=== PATIENT | female | born 1960 | race Caucasian/White ===

== ENCOUNTER → 2021-08-21 08:22 | Outpatient (CLI) | payer OTHER, SELFPAY ==
[2021-08-21 19:12] LABS: Add Manual Diff / Slide Review NO; Basophils Absolute Auto 0 /uL (0-100); Basophils Percent Auto 0.6 % (0-2); Eosinophils Absolute Auto 200 /uL (0-450); Eosinophils Percent Auto 2.7 % (2-4); Hematocrit 38.6 % (36-46); Hemoglobin 12.4 g/dL (12.0-16.0); Lymphocytes Absolute Auto 1900 /uL (1100-4500); Lymphocytes Percent Auto 27.7 % (25-40); Mean Corpuscular HGB Conc 32.1 % (30-36); Mean Corpuscular Hemoglobin 26.5 PG (26-34); Mean Corpuscular Volume 82.3 fL (80-100); Monocytes Absolute Auto 400 /uL (0-900); Monocytes Percent Auto 5.6 % (3-14); Neutrophils Absolute Auto 4200 /uL (1500-7000); Neutrophils Percent Auto 63.4 % (50-75); Platelet Count 227 X10^3/uL (150-400); Red Blood Cell Count 4.69 X10^6/uL (4.0-5.2); Red Cell Distribution Width 14.7 % (11.6-14.8); White Blood Cell Count 6.7 X10^3/uL (4.5-11.0)
[2021-08-21 19:20] LABS: Alanine Aminotransferase 23 IU/L (<35); Albumin 4.3 g/dL (3.5-5.0); Albumin Globulin Ratio 1.4 (1.0-2.8); Alkaline Phosphatase 76 U/L (38-126); Aspartate Aminotransferase 22 IU/L (14-36); BUN Creatinine Ratio 25.5 (6-22); Bilirubin Total 0.4 mg/dL (0.2-1.3); Blood Urea Nitrogen 13 mg/dL (7-17); Calcium 9.3 mg/dL (8.4-10.2); Carbon Dioxide 31 mmol/L (22-32); Chloride 104 mmol/L (98-107); Cholesterol 223 mg/dL (140-199); Estimated Glomerular Filt Rate > 60.0 mL/min (>60); Globulin 3.1 g/dL (1.7-4.1); Glucose 119 mg/dL (80-110); HDL Cholesterol 50 mg/dL (40-60); HEMOLYSIS < 15 (0-50); LDL Cholesterol Calculated 144 mg/dL (<100); Potassium 4.1 mmol/L (3.4-5.1); Sodium 143 mmol/L (137-145); Total Protein 7.4 g/dL (6.3-8.2); Triglycerides 145 mg/dL (35-150)
[2021-08-21 19:25] LABS: Hemoglobin A1C% w Est Avg Glu 6.5 % (4.0-6.0)
[2021-08-21 19:37] LABS: Creatinine Urine Random 143.4 mg/dL
[2021-08-21 19:41] LABS: Microalbumi Creatinin Ratio Ur 61.3 ug/mg CR (<30); Microalbumin Urine Random 8.8 mg/dL (0-1.6)
[2021-08-21 19:50] LABS: TSH w/ Reflex to FT4 3.18 uIU/mL (0.47-4.68)
[2021-08-23 14:57] LABS: Fecal Immunochemical Test Negative (Negative)
== END ==
PROVIDERS: Physician Assistant; Family Provider Family Medicine; PCP Physician Assistant Medical; Referring Provider Physician Assistant Medical; Visit Provider Physician Assistant Medical
DX: K29.70 Gastritis, unspecified, without bleeding (principal); E11.9 Type 2 diabetes mellitus without complications; M79.10 Myalgia, unspecified site; M13.862 Other specified arthritis, left knee; M54.9 Dorsalgia, unspecified; E66.9 Obesity, unspecified; N12 Tubulo-interstitial nephritis, not specified as acute or chronic; K46.9 Unspecified abdominal hernia without obstruction or gangrene
CPT/HCPCS: 80053; 80061; 82043; 82274; 82570; 83036; 84443; 85025

== ENCOUNTER → 2021-12-16 13:28 | Outpatient (CLI) | payer OTHER, SELFPAY ==
[2021-12-16 19:13] LABS: Add Manual Diff / Slide Review NO; Basophils Absolute Auto 0 /uL (0-100); Basophils Percent Auto 0.5 % (0-2); Eosinophils Absolute Auto 100 /uL (0-450); Eosinophils Percent Auto 1.7 % (2-4); Hematocrit 37.1 % (36-46); Hemoglobin 12.2 g/dL (12.0-16.0); Lymphocytes Absolute Auto 1800 /uL (1100-4500); Lymphocytes Percent Auto 24.8 % (25-40); Mean Corpuscular HGB Conc 32.9 % (30-36); Mean Corpuscular Hemoglobin 26.5 PG (26-34); Mean Corpuscular Volume 80.4 fL (80-100); Monocytes Absolute Auto 400 /uL (0-900); Neutrophils Absolute Auto 4900 /uL (1500-7000); Platelet Count 225 X10^3/uL (150-400); Red Blood Cell Count 4.62 X10^6/uL (4.0-5.2); Red Cell Distribution Width 14.7 % (11.6-14.8); White Blood Cell Count 7.2 X10^3/uL (4.5-11.0)
[2021-12-16 19:36] LABS: Hemoglobin A1C% w Est Avg Glu 6.9 % (4.0-6.0)
[2021-12-16 19:43] LABS: Alanine Aminotransferase 21 IU/L (<35); Albumin 4.4 g/dL (3.5-5.0); Albumin Globulin Ratio 1.4 (1.0-2.8); Alkaline Phosphatase 76 U/L (38-126); Aspartate Aminotransferase 23 IU/L (14-36); BUN Creatinine Ratio 22.6 (6-22); Bilirubin Total 0.4 mg/dL (0.2-1.3); Blood Urea Nitrogen 14 mg/dL (7-17); Carbon Dioxide 32 mmol/L (22-32); Chloride 104 mmol/L (98-107); Cholesterol 143 mg/dL (140-199); Estimated Glomerular Filt Rate > 60.0 mL/min (>60); Globulin 3.1 g/dL (1.7-4.1); Glucose 98 mg/dL (80-110); HDL Cholesterol 48 mg/dL (40-60); HEMOLYSIS < 15 (0-50); LDL Cholesterol Calculated 75 mg/dL (<100); Potassium 3.8 mmol/L (3.4-5.1); Sodium 140 mmol/L (137-145); Total Protein 7.5 g/dL (6.3-8.2); Triglycerides 100 mg/dL (35-150)
[2021-12-16 20:30] LABS: TSH w/ Reflex to FT4 3.68 uIU/mL (0.47-4.68)
== END ==
PROVIDERS: Family Provider Family Medicine; PCP Physician Assistant; Visit Provider Physician Assistant
DX: E11.9 Type 2 diabetes mellitus without complications (principal); G89.29 Other chronic pain; M54.6 Pain in thoracic spine; R79.89 Other specified abnormal findings of blood chemistry; Z68.42 Body mass index [BMI] 45.0-49.9, adult
CPT/HCPCS: 80053; 80061; 83036; 84443; 85025

== ENCOUNTER → 2022-04-11 10:55 | Outpatient (CLI) | payer OTHER, SELFPAY ==
[2022-04-11 20:10] LABS: Hemoglobin A1C% w Est Avg Glu 7.2 % (4.0-6.0)
== END ==
PROVIDERS: Family Provider Family Medicine; PCP Physician Assistant; Visit Provider Physician Assistant
DX: E11.9 Type 2 diabetes mellitus without complications (principal)
CPT/HCPCS: 83036

== ENCOUNTER → 2022-09-19 08:17 | Outpatient (CLI) | payer OTHER, SELFPAY ==
[2022-09-19 20:04] LABS: Hemoglobin A1C% w Est Avg Glu 6.6 % (4.0-6.0)
[2022-09-19 20:07] LABS: Alanine Aminotransferase 25 IU/L (<35); Albumin 4.3 g/dL (3.5-5.0); Albumin Globulin Ratio 1.3 (1.0-2.8); Alkaline Phosphatase 86 U/L (38-126); Aspartate Aminotransferase 21 IU/L (14-36); BUN Creatinine Ratio 22.8 (6-22); Bilirubin Total 0.5 mg/dL (0.2-1.3); Blood Urea Nitrogen 13 mg/dL (7-17); Calcium 9.3 mg/dL (8.4-10.2); Carbon Dioxide 31 mmol/L (22-32); Chloride 101 mmol/L (98-107); Estimated Glomerular Filt Rate > 60 mL/min (>60); Globulin 3.2 g/dL (1.7-4.1); Glucose 105 mg/dL (80-110); HEMOLYSIS < 15 (0-50); Sodium 140 mmol/L (137-145); Total Protein 7.5 g/dL (6.3-8.2)
[2022-09-19 20:17] LABS: Creatinine Urine Random 176.2 mg/dL
[2022-09-19 20:22] LABS: Microalbumi Creatinin Ratio Ur 43.1 ug/mg CR (<30); Microalbumin Urine Random 7.6 mg/dL (0-1.6)
== END ==
PROVIDERS: Family Provider Family Medicine; PCP Physician Assistant; Visit Provider Family Medicine
DX: E11.9 Type 2 diabetes mellitus without complications (principal); N28.9 Disorder of kidney and ureter, unspecified
CPT/HCPCS: 80053; 82043; 82570; 83036

== ENCOUNTER → 2023-06-04 12:49 | Outpatient (CLI) | payer OTHER, SELFPAY ==
[2023-06-04 19:48] LABS: Uric Acid 5.9 mg/dL (2.5-6.2)
[2023-06-04 19:59] LABS: Add Manual Diff / Slide Review NO; Basophils Absolute Auto 0 /uL (0-100); Basophils Percent Auto 0.3 % (0-2); Eosinophils Absolute Auto 200 /uL (0-450); Eosinophils Percent Auto 2.7 % (2-4); Hematocrit 37.7 % (36-46); Hemoglobin 12.5 g/dL (12.0-16.0); Lymphocytes Absolute Auto 1800 /uL (1100-4500); Lymphocytes Percent Auto 24.8 % (25-40); Mean Corpuscular Hemoglobin 26.7 PG (26-34); Mean Corpuscular Volume 80.8 fL (80-100); Monocytes Absolute Auto 500 /uL (0-900); Monocytes Percent Auto 6.4 % (3-14); Neutrophils Absolute Auto 4700 /uL (1500-7000); Neutrophils Percent Auto 65.8 % (50-75); Platelet Count 221 X10^3/uL (150-400); Red Blood Cell Count 4.66 X10^6/uL (4.0-5.2); Red Cell Distribution Width 14.7 % (11.6-14.8); White Blood Cell Count 7.2 X10^3/uL (4.5-11.0)
[2023-06-04 20:06] LABS: Erythrocyte Sedimentation Rate 22 MM/HR (0-20)
[2023-06-04 20:21] LABS: Creatinine Urine Random 301.4 mg/dL
[2023-06-04 20:27] LABS: Microalbumi Creatinin Ratio Ur 39.8 ug/mg CR (<30)
== END ==
PROVIDERS: Family Provider Family Medicine; PCP Physician Assistant; Visit Provider Physician Assistant
DX: L03.90 Cellulitis, unspecified (principal); E11.9 Type 2 diabetes mellitus without complications
CPT/HCPCS: 82043; 82570; 84550; 85025; 85651

== ENCOUNTER → 2023-09-01 08:26 | Outpatient (CLI) | payer MEDICARE, SELFPAY ==
[2023-09-01 19:18] LABS: Alanine Aminotransferase 25 IU/L (<35); Albumin 3.9 g/dL (3.5-5.0); Albumin Globulin Ratio 1.3 (1.0-2.8); Alkaline Phosphatase 87 U/L (38-126); Aspartate Aminotransferase 22 IU/L (14-36); BUN Creatinine Ratio 28.8 (6-22); Bilirubin Total 0.5 mg/dL (0.2-1.3); Blood Urea Nitrogen 15 mg/dL (7-17); Calcium 9.3 mg/dL (8.4-10.2); Carbon Dioxide 30 mmol/L (22-32); Chloride 104 mmol/L (98-107); Estimated Glomerular Filt Rate > 60 mL/min (>60); Glucose 119 mg/dL (80-110); HEMOLYSIS < 15 (0-50); Potassium 3.9 mmol/L (3.4-5.1); Sodium 141 mmol/L (137-145); Total Protein 6.9 g/dL (6.3-8.2)
[2023-09-01 19:34] LABS: Add Manual Diff / Slide Review NO; Basophils Absolute Auto 100 /uL (0-100); Eosinophils Absolute Auto 300 /uL (0-450); Eosinophils Percent Auto 3.8 % (2-4); Hematocrit 37.3 % (36-46); Hemoglobin 12.3 g/dL (12.0-16.0); Lymphocytes Absolute Auto 1700 /uL (1100-4500); Lymphocytes Percent Auto 24.8 % (25-40); Mean Corpuscular Hemoglobin 26.8 PG (26-34); Mean Corpuscular Volume 81.2 fL (80-100); Monocytes Absolute Auto 500 /uL (0-900); Monocytes Percent Auto 7.2 % (3-14); Neutrophils Absolute Auto 4300 /uL (1500-7000); Neutrophils Percent Auto 63.2 % (50-75); Platelet Count 220 X10^3/uL (150-400); Red Blood Cell Count 4.59 X10^6/uL (4.0-5.2); White Blood Cell Count 6.9 X10^3/uL (4.5-11.0)
[2023-09-01 19:49] LABS: C-Reactive Protein Quant 1.3 mg/dL (<1.0)
[2023-09-01 19:52] LABS: TSH w/ Reflex to FT4 3.39 uIU/mL (0.47-4.68)
[2023-09-01 20:33] LABS: Erythrocyte Sedimentation Rate 21 MM/HR (0-20)
== END ==
PROVIDERS: Family Provider Family Medicine; PCP Physician Assistant Medical; Visit Provider Physician Assistant Medical
DX: L29.9 Pruritus, unspecified (principal)
CPT/HCPCS: 80053; 84443; 85025; 85651; 86140

== ENCOUNTER → 2023-09-16 09:32 | Outpatient (CLI) | payer MEDICARE, SELFPAY ==
[2023-09-16 20:27] LABS: C-Reactive Protein Quant 1.5 mg/dL (<1.0); Cholesterol 195 mg/dL (140-199); HDL Cholesterol 43 mg/dL (40-60); LDL Cholesterol Calculated 129 mg/dL (<100); Triglycerides 117 mg/dL (35-150)
[2023-09-16 20:29] LABS: Hemoglobin A1C% w Est Avg Glu 7.2 % (4.0-6.0)
== END ==
PROVIDERS: Family Provider Family Medicine; PCP Physician Assistant Medical; Visit Provider Physician Assistant Medical
DX: E11.9 Type 2 diabetes mellitus without complications (principal); E78.00 Pure hypercholesterolemia, unspecified; M79.671 Pain in right foot; M79.672 Pain in left foot; L29.9 Pruritus, unspecified
CPT/HCPCS: 80061; 83036; 86140

== ENCOUNTER 2023-10-18 10:24 | Emergency (ER) | payer MEDICARE, MEDICAID, SELFPAY ==
[2023-10-18 10:30] VITALS: PULSE 87; O2SAT 98
[2023-10-18 10:33] VITALS: BP 162/74; PULSE 81; RESP 19; O2SAT 99
--- NOTE | 2023-10-18 10:33 | DI.RAD.S_ITS ---
PROCEDURE: XR CHEST 2V INDICATIONS: cough and SOB TECHNIQUE: 2 views of the chest were acquired. COMPARISON: [facility], , CHEST 2 VIEW, 04/28/2011, 23:29. FINDINGS: Surgical changes and devices: None. Lungs and pleura: Lungs are clear. No pleural effusions or pneumothorax. Mediastinum: Mediastinal contours are normal. Heart size is normal. Bones and chest wall: No suspicious bony abnormalities. Soft tissues appear unremarkable. IMPRESSION: No acute cardiopulmonary abnormality is seen. Dictated by: Wai Schafer M.D. on 10/18/2023 at 9:54 Approved by: Wai Schafer M.D. on 10/18/2023 at 9:56
[2023-10-18 10:34] VITALS: BP 162/74; PULSE 82; RESP 16; TEMP 36.8; O2SAT 97
--- NOTE | 2023-10-18 10:34 | ED.GENADULT ---
HPI - General Adult General Chief complaint: Urogenital-Female Stated complaint: fever, lower back/abd pain, pain when urinating Time Seen by Provider: 10/18/23 10:29 Source: patient Mode of arrival: Ambulatory Limitations: no limitations History of Present Illness HPI narrative: Patient is a 63-year-old female who for the past several weeks/months has had a nonproductive cough. No fevers. No chest pain. Somewhat short of breath because of the cough. Over the past couple days has developed dysuria with urinary frequency and urgency. Also is having lower back discomfort and fevers. Has had her gallbladder removed. Has had her appendix removed. No diarrhea. Related Data Previous Rx's Medication Instructions Recorded cyclobenzaprine 5 mg tablet 5 - 10 mg (1 - 2 x 5 mg) PO TID 12/05/21 PRN muscle spasm #30 tabs blood sugar diagnostic (Blood #100 ea 08/25/22 Glucose Test strips) blood-glucose meter (CareTouch #1 ea 08/25/22 Glucose Monitoring System kit) liraglutide 0.6 mg/0.1 mL (18 mg/3 See Rx Instructions SUBCUT 01/02/23 mL) subcutaneous pen injector .COMPLEX #9 mL (Victoza 3-Gurmeet) meloxicam 15 mg tablet 15 mg PO DAILY #30 tabs 01/02/23 cephalexin 500 mg capsule 500 mg PO QID #20 caps 05/19/23 hydroxyzine HCl 25 mg tablet 25 mg PO QID #30 tabs 05/19/23 hydroxyzine HCl 25 mg tablet 25 mg PO BEDTIME #60 tabs 08/19/23 hydrocortisone 1 % topical gel 1 applic topical TID PRN itching 09/11/23 (Cortisone Cooling) #28 grams atorvastatin 20 mg tablet 20 mg PO QPM #30 tabs 10/02/23 atorvastatin 40 mg tablet 40 mg PO DAILY #90 tabs 10/02/23 lisinopril 10 mg tablet 10 mg PO DAILY #90 tabs 10/02/23 metformin 1,000 mg tablet 1,000 mg PO DAILY #270 tabs 10/02/23 cephalexin 500 mg capsule 500 mg PO BID 7 days #14 caps 10/18/23 Allergies Allergy/AdvReac Type Severity Reaction Status Date / Time No Known Drug Allergies Allergy Verified 10/02/23 10:06 Review of Systems Cardiovascular Cardiovascular: Reports system reviewed and no additional complaints, except as documented Respiratory Respiratory: Reports system reviewed and no additional complaints, except as documented Gastrointestinal Gastrointestinal: Reports system reviewed and no additional complaints, except as documented Genitourinary Genitourinary: Reports system reviewed and no additional complaints, except as documented Integumentary/Breasts Skin/Breast: Reports system reviewed and no additional complaints, except as documented Patient History Medical History Pain in thoracic spine Surgical History (Updated 01/05/23 @ 15:17 by Lady Dominique Lei) Anesthesia History of hysterectomy (~2015) History of cholecystectomy (~2015) History of appendectomy (~2016) Family History (System 01/05/23 @ 15:17 by Lady Dominique Lei) Mother Kidney disease Grandmother History of head or neck cancer Social History Smoking Status: Never smoker Smoking Status: Never smoker Exam Initial Vital Signs Initial Vital Signs: Vital Signs Pulse Rate 87 10/18/23 10:30 Pulse Oximetry 98 10/18/23 10:30 HENMT Head: normal to inspection and normocephalic Resp Effort & Inspection: normal respiratory effort Auscultation: clear to auscultation bilaterally Cardio Rate: regular rate Rhythm: regular rhythm GI Inspection: non-distended Palpation: soft and No tender Skin General: no rashes or lesions noted Neuro General: patient alert, patient awake, patient oriented x3 and moves all extremities Extrem General: No edema Course Orders Ordered: ED Orders 10/18/23 10:33 XR chest 2V Stat 10/18/23 10:37 Complete Blood Count AUTO DIFF Stat Comprehensive Metabolic Panel Stat Lipase Stat Urine Culture Stat Urine Microscopic Stat Vital Signs Vital signs: Vital Signs - 8 hr 10/18/23 10:30 10/18/23 10:33 10/18/23 10:33 Temperature Pulse Rate 87 81 Respiratory Rate 19 Blood Pressure 162/74 H Pulse Oximetry 98 99 Oxygen Delivery Method Room Air 10/18/23 10:34 10/18/23 11:00 10/18/23 11:01 Temperature 98.3 F Pulse Rate 82 81 Respiratory Rate 16 Blood Pressure 162/74 H 142/63 H Pulse Oximetry 97 98 Oxygen Delivery Method Room Air 10/18/23 11:01 Temperature Pulse Rate 82 Respiratory Rate Blood Pressure Pulse Oximetry 98 Oxygen Delivery Method Room Air Medical Decision Making Lab Data 10/18/23 10:37 10/18/23 10:37 Labs: Lab Results 10/18/23 Range/Units 10:37 WBC 5.7 (4.5-11.0) X10^3/uL RBC 5.02 (4.0-5.2) X10^6/uL Hgb 13.3 (12.0-16.0) g/dL Hct 41.0 (36-46) % MCV 81.6 (80-100) fL MCH 26.6 (26-34) PG MCHC 32.5 (30-36) % RDW 14.8 (11.6-14.8) % Plt Count 287 (150-400) X10^3/uL Neut % (Auto) 55.1 (50-75) % Lymph % (Auto) 30.2 (25-40) % [place] % (Auto) 11.0 (3-14) % Eos % (Auto) 3.2 (2-4) % Baso % (Auto) 0.5 (0-2) % Neut # (Auto) 3200 (9974-3861) /uL Lymph # (Auto) 1700 (6168-7400) /uL [place] # (Auto) 600 (0-900) /uL Eos # (Auto) 200 (0-450) /uL Baso # (Auto) 0 (0-100) /uL Sodium 141 (137-145) mmol/L Potassium 3.4 (3.4-5.1) mmol/L Chloride 104 (98-107) mmol/L Carbon Dioxide 29 (22-32) mmol/L BUN 14 (7-17) mg/dL Creatinine 0.57 (0.52-1.04) mg/dL Estimated GFR > 60 (>60) mL/min BUN/Creatinine Ratio 24.6 H (6-22) Glucose 136 H (80-110) mg/dL Calcium 9.4 (8.4-10.2) mg/dL Total Bilirubin 0.5 (0.2-1.3) mg/dL AST 28 (14-36) IU/L ALT 28 (<35) IU/L Alkaline Phosphatase 70 (38-126) U/L Total Protein 8.0 (6.3-8.2) g/dL Albumin 4.3 (3.5-5.0) g/dL Globulin 3.7 (1.7-4.1) g/dL Albumin/Globulin Ratio 1.2 (1.0-2.8) Lipase 85 (23-300) U/L Urine RBC 1-5/hpf (0-5/HPF) Urine WBC 30-100/hpf H (0-5/HPF) Ur Squamous Epith Cells 1-5 /hpf (0-5/HPF) Urine Bacteria Many (>30) H (None) Ur Culture Indicated? Specimen cultured Urine Dip Bedside Urine Glucose Negative Bedside Urine Bilirubin - Negative Bedside Urine Ketone - Negative Urine Specific [place] 1.020 Bedside Urine Occult Blood +/- Bedside Urine pH 6.0 Bedside Urine Protein +/- 15 Bedside Urine Urobilinogen - Negative Bedside Urine Nitrite - Negative Bedside Urine Leukocytes + 70 Esterase Point of care testing: Urine Dip Bedside Urine Glucose Negative Bedside Urine Bilirubin - Negative Bedside Urine Ketone - Negative Urine Specific [place] 1.020 Bedside Urine Occult Blood +/- Bedside Urine pH 6.0 Bedside Urine Protein +/- 15 Bedside Urine Urobilinogen - Negative Bedside Urine Nitrite - Negative Bedside Urine Leukocytes + 70 Esterase Imaging Data Chest x-ray: Radiologist's Impression: PROCEDURE: XR CHEST 2V INDICATIONS: cough and SOB TECHNIQUE: 2 views of the chest were acquired. COMPARISON: [facility], , CHEST 2 VIEW, 04/28/2011, 23:29. FINDINGS: Surgical changes and devices: None. Lungs and pleura: Lungs are clear. No pleural effusions or pneumothorax. Mediastinum: Mediastinal contours are normal. Heart size is normal. Bones and chest wall: No suspicious bony abnormalities. Soft tissues appear unremarkable. IMPRESSION: No acute cardiopulmonary abnormality is seen. [facility] Narrative Medical decision making narrative: Patient is nontoxic. No leukocytosis. Not hypoxic. Not tachypneic. Not hypotensive. Low suspicion for pyelo. Urinalysis does show white blood cells and bacteria. This would be consistent with the dysuria that she is having today with a diagnosis of urinary tract infection. She was tolerating oral intake. Will treat with antibiotics. No indication for admission to the hospital. She was given return precautions. She expressed understanding and agreement. Discharge Plan Departure Patient Disposition: Home Clinical Impression: Acute UTI Instructions: DI for Urinary Tract Infection (UTI) Activity Restrictions/Additional Instructions: A prescription for antibiotics was sent to [facility] here in [place]. I recommend that you pick them up and start taking them as directed. There is a urine culture pending at the time of your discharge and we will contact you if we need to change antibiotics based on this. Return to the emergency department for new symptoms Prescriptions: New cephalexin 500 mg capsule 500 mg PO BID 7 Days Qty: 14 0RF No Action (DME) blood-glucose meter [[employer] mobile [employer] Glucose Monitoring] Kit See Rx Instructions .Route Qty: 1 0RF Rx Instructions: As directed (DME) Blood Glucose Test Strip See Rx Instructions .Route Qty: 100 1RF Rx Instructions: As directed cyclobenzaprine 5 mg tablet 5 - 10 mg PO TID PRN (Reason: muscle spasm) Qty: 30 0RF cephalexin 500 mg capsule 500 mg PO QID Qty: 20 0RF hydroxyzine HCl 25 mg tablet 25 mg PO QID Qty: 30 0RF hydroxyzine HCl 25 mg tablet 25 mg PO BEDTIME Qty: 60 0RF Rx Instructions: take 1 or 2 at bedtime for itching Victoza 3-Gurmeet 0.6 mg/0.1 mL (18 mg/3 mL) pen injector See Rx Instructions SUBCUT .COMPLEX Qty: 9 1RF Rx Instructions: inject 0.6mg subcutaneously once daily x 7 days; then 1.2mg daily, not to exceed 1.8mg/day SUBCUT meloxicam 15 mg tablet 15 mg PO DAILY Qty: 30 2RF triamcinolone acetonide [Kenalog] 40 mg/mL suspension 40 mg intra-articular ONCE Qty: 1 0RF Cortisone Cooling 1 % gel 1 applic topical TID PRN (Reason: itching) Qty: 28 3RF metformin 1,000 mg tablet 1,000 mg PO DAILY Qty: 270 1RF Rx Instructions: [place] con comida dos veces al clementina lisinopril 10 mg tablet 10 mg PO DAILY Qty: 90 3RF atorvastatin 40 mg tablet 40 mg PO DAILY Qty: 90 3RF atorvastatin 20 mg tablet 20 mg PO QPM Qty: 30 5RF Referrals: Jill Zacarias PA-C [Primary Care Provider] - Stand Alone Forms: Patient Portal/API
[2023-10-18 11:00] VITALS: PULSE 81; O2SAT 98
[2023-10-18 11:01] VITALS: BP 142/63; PULSE 82; O2SAT 98
--- NOTE | 2023-10-18 11:02 | PC.NURSE ---
Pt reports having urinary pain and back pain on and off for the past 3 weeks. She was feeling better last week, but this week her symptoms returned and are worsening. She has bilateral flank pain that radiates to the front of bilateral abdomen. Family in room at bedside. Pt reports burning pain with urination and feeling like she still has to urinate after urinating.
[2023-10-18 11:05] LABS: Bacteria Urine Many (>30); RBC Urine 1-5/HPF (0-5/HPF); WBC Urine 30-100/HPF (0-5/HPF)
[2023-10-18 11:06] LABS: Culture Indicated Urine Specimen Cultured; Squamous Epithelial Cell Urine 1-5 /HPF (0-5/HPF)
[2023-10-18 11:12] LABS: Add Manual Diff / Slide Review NO; Basophils Absolute Auto 0 /uL (0-100); Basophils Percent Auto 0.5 % (0-2); Eosinophils Absolute Auto 200 /uL (0-450); Eosinophils Percent Auto 3.2 % (2-4); Hemoglobin 13.3 g/dL (12.0-16.0); Lymphocytes Absolute Auto 1700 /uL (1100-4500); Lymphocytes Percent Auto 30.2 % (25-40); Mean Corpuscular HGB Conc 32.5 % (30-36); Mean Corpuscular Hemoglobin 26.6 PG (26-34); Mean Corpuscular Volume 81.6 fL (80-100); Monocytes Absolute Auto 600 /uL (0-900); Neutrophils Absolute Auto 3200 /uL (1500-7000); Neutrophils Percent Auto 55.1 % (50-75); Platelet Count 287 X10^3/uL (150-400); Red Blood Cell Count 5.02 X10^6/uL (4.0-5.2); Red Cell Distribution Width 14.8 % (11.6-14.8); White Blood Cell Count 5.7 X10^3/uL (4.5-11.0)
[2023-10-18 11:15] LABS: Alanine Aminotransferase 28 IU/L (<35); Albumin 4.3 g/dL (3.5-5.0); Albumin Globulin Ratio 1.2 (1.0-2.8); Alkaline Phosphatase 70 U/L (38-126); Aspartate Aminotransferase 28 IU/L (14-36); BUN Creatinine Ratio 24.6 (6-22); Bilirubin Total 0.5 mg/dL (0.2-1.3); Blood Urea Nitrogen 14 mg/dL (7-17); Calcium 9.4 mg/dL (8.4-10.2); Carbon Dioxide 29 mmol/L (22-32); Chloride 104 mmol/L (98-107); Estimated Glomerular Filt Rate > 60 mL/min (>60); Globulin 3.7 g/dL (1.7-4.1); Glucose 136 mg/dL (80-110); HEMOLYSIS < 15 (0-50); Lipase 85 U/L (23-300); Potassium 3.4 mmol/L (3.4-5.1); Sodium 141 mmol/L (137-145)
[2023-10-18 11:30] VITALS: BP 141/63; PULSE 87; O2SAT 98
== END 2023-10-18 11:40 | disposition home or self-care (01) ==
PROVIDERS: Emergency Provider Emergency Medicine; Family Provider Family Medicine; PCP Physician Assistant Medical
DX: N39.0 Urinary tract infection, site not specified (principal); R06.02 Shortness of breath; Z79.899 Other long term (current) drug therapy
CPT/HCPCS: 36415; 71046; 80053; 81003; 81015; 83690; 85025; 87077; 87086; 99283

== ENCOUNTER → 2023-10-30 14:10 | Outpatient (CLI) | payer MEDICARE, MEDICAID, SELFPAY ==
--- NOTE | 2023-10-30 14:12 | DI.MRI.S_ITS ---
PROCEDURE: MR ANKLE LT WO CON INDICATIONS: POSTERIOR TIBIALIS MUSCLE DYSFUNCTION/TENDONITIS TECHNIQUE: Noncontrast sagittal T1 spin echo and T2 fast spin echo with fat saturation, axial proton density fast spin echo and T2 fast spin echo with fat saturation, coronal T1 spin echo and T2 fast spin echo with fat saturation through the ankle/hindfoot. COMPARISON: None. FINDINGS: Image quality: Excellent. Bones and joints: Diffuse soft tissue swelling around ankle joint and distal lower leg is seen extending to medial and lateral aspect of midfoot and hindfoot. There is pes planus. Moderate osteoarthritic changes are noted throughout midfoot and hindfoot joints. No fracture or dislocation. Osteochondral injuries are noted involving medial weight-bearing portion of talar dome measures up to 3 millimeter in size. Adjacent osteochondral injury involving medial aspect of distal tibial plafond is also seen. Small to moderate amount of tibiotalar and subtalar joint effusion, no gross loose bodies. Well-defined plantar calcaneal enthesophyte is seen. Medial structures: The posterior tibialis tendon is thickened with intrasubstance T2 hyperintense signal at the level of distal talus and talonavicular joint. The flexor digitorum longus, and flexor hallucis longus tendons are mildly thickened. The posterior tibial neurovascular bundle appears normal within the tarsal tunnel, without extrinsic mass effect. The deltoid ligament and spring ligament are thickened with subtle intrasubstance T2 hyperintense signal. Lateral structures: The anterior talofibular, calcaneofibular, and posterior talofibular ligaments appear thickened. More superiorly, the anterior and posterior tibiofibular ligaments also appears thickened with intrasubstance T2 hyperintense signal. The tibiofibular syndesmosis is normal in width at 2 mm or less. The peroneus longus tendon is thickened with small amount of fluid distending tendon sheath at the level of lateral malleolus tip extending to the level of distal cuboid. The peroneus brevis tendon is intact. The sinus tarsi demonstrates normal fatty signal, without edema, fibrosis, or cyst formation. Visualized sinus tarsi components (cervical ligament, interosseous talocalcaneal ligament, roots of the inferior extensor retinaculum) appear normal. Anterior structures: The tibialis anterior, extensor hallucis longus, and extensor digitorum longus tendons appear intact. The dorsal talonavicular ligament appears intact. Posterior and plantar structures: Achilles tendon is intact. Thickened medial band of plantar fascia is seen at its plantar calcaneal insertion. No abductor digiti quinti muscle atrophy to suggest Hassan neuropathy. IMPRESSION: 1. Pes planus and moderate midfoot and hindfoot joint osteoarthritis. Diffuse soft tissue swelling in distal lower leg and extending along medial and lateral aspect of midfoot and hindfoot. No fracture or dislocation. Tiny osteochondral injuries involving medial weight-bearing portion of talar dome and adjacent distal tibial plafond. Small to moderate amount of joint effusion, no gross loose bodies. 2. Moderate grade tenosynovitis involving posterior tibialis tendon at the level of distal talus and talonavicular joint. Low-grade tenosynovitis also seen involving flexor digitorum longus and flexor hallucis longus tendon at the level of distal talus and talonavicular joint. 3. Low to moderate grade tenosynovitis involving peroneus longus tendon at the level of lateral malleolus tip extending to the level of distal cuboid. 4. Low-grade sprain/intrasubstance partial-thickness tear involving medial ankle ligaments. Low-grade sprain involving lateral ankle ligaments. No full thickness ankle ligament rupture. 5. Well-defined plantar calcaneal enthesophyte with thickened plantar fascia suggestive of low to moderate grade plantar fasciitis. Dictated by: Wilfredo Reid M.D. on 10/30/2023 at 16:13 Approved by: Wilfredo Reid M.D. on 10/30/2023 at 16:26
== END ==
LOC: MRI 14:11
PROVIDERS: Family Provider Family Medicine; PCP Physician Assistant Medical; Referring Provider Orthopaedic Surgery Foot and Ankle Surgery; Visit Provider Orthopaedic Surgery Foot and Ankle Surgery
DX: M76.822 Posterior tibial tendinitis, left leg (principal); M21.42 Flat foot [pes planus] (acquired), left foot; M19.072 Primary osteoarthritis, left ankle and foot; S93.492A Sprain of other ligament of left ankle, initial encounter; M77.32 Calcaneal spur, left foot
CPT/HCPCS: 73721

== ENCOUNTER → 2023-12-31 08:46 | Outpatient (CLI) | payer MEDICARE, MEDICAID, SELFPAY ==
[2023-12-31 21:04] LABS: Erythrocyte Sedimentation Rate 28 MM/HR (0-20)
[2023-12-31 22:08] LABS: Creatinine Urine Random 113.4 mg/dL
[2023-12-31 22:11] LABS: C-Reactive Protein Quant 1.4 mg/dL (<1.0); Cholesterol 205 mg/dL (140-199); HDL Cholesterol 49 mg/dL (40-60); LDL Cholesterol Calculated 135 mg/dL (<100); Triglycerides 106 mg/dL (35-150)
[2023-12-31 22:14] LABS: Hemoglobin A1C% w Est Avg Glu 7.3 % (4.0-6.0)
[2023-12-31 22:15] LABS: Microalbumi Creatinin Ratio Ur 94.3 ug/mg CR (<30); Microalbumin Urine Random 10.7 mg/dL (0-1.6)
== END ==
PROVIDERS: Family Provider Family Medicine; PCP Physician Assistant Medical; Visit Provider Physician Assistant Medical
DX: Z12.11 Encounter for screening for malignant neoplasm of colon (principal); E11.9 Type 2 diabetes mellitus without complications; E78.2 Mixed hyperlipidemia; E11.8 Type 2 diabetes mellitus with unspecified complications; M79.671 Pain in right foot; M79.672 Pain in left foot; E78.00 Pure hypercholesterolemia, unspecified; L29.9 Pruritus, unspecified
CPT/HCPCS: 80061; 82043; 82570; 83036; 85651; 86140

== ENCOUNTER → 2024-09-08 09:07 | Outpatient (CLI) | payer MEDICARE, MEDICAID, SELFPAY ==
[2024-09-08 20:08] LABS: Hemoglobin A1C% w Est Avg Glu 9.4 % (4.0-6.0)
[2024-09-08 20:15] LABS: Blood Urea Nitrogen 13 mg/dL (7-17); Calcium 9.4 mg/dL (8.4-10.2); Carbon Dioxide 31 mmol/L (22-32); Chloride 102 mmol/L (98-107); Cholesterol 225 mg/dL (140-199); Estimated Glomerular Filt Rate > 60 mL/min (>60); Glucose 239 mg/dL (80-110); HDL Cholesterol 52 mg/dL (40-60); HEMOLYSIS 31 (0-50); LDL Cholesterol Calculated 147 mg/dL (<100); Potassium 4.2 mmol/L (3.4-5.1); Sodium 137 mmol/L (137-145); Triglycerides 130 mg/dL (35-150)
[2024-09-08 20:49] LABS: Creatinine Urine Random 285.41 mg/dL
[2024-09-08 21:19] LABS: Microalbumin Urine Random 28.8 mg/dL (0-1.6)
== END ==
PROVIDERS: Family Provider Family Medicine; PCP Physician Assistant Medical; Visit Provider Family Medicine
DX: E11.9 Type 2 diabetes mellitus without complications (principal); I10 Essential (primary) hypertension; G57.90 Unspecified mononeuropathy of unspecified lower limb; Z68.42 Body mass index [BMI] 45.0-49.9, adult; E78.2 Mixed hyperlipidemia
CPT/HCPCS: 80048; 80061; 82043; 82570; 83036

== ENCOUNTER → 2025-08-24 14:54 | Outpatient (CLI) | payer MEDICARE, MEDICAID, SELFPAY ==
[2025-08-24 19:47] LABS: Microalbumi Creatinin Ratio Ur 28.0 ug/mg CR (<30)
== END ==
PROVIDERS: Family Provider Family Medicine; PCP Physician Assistant Medical; Visit Provider Physician Assistant Medical
DX: E11.9 Type 2 diabetes mellitus without complications (principal)
CPT/HCPCS: 82043; 82570

== ENCOUNTER → 2025-08-28 08:04 | Outpatient (CLI) | payer MEDICARE, MEDICAID, SELFPAY ==
[2025-08-28 18:53] LABS: Add Manual Diff / Slide Review NO; Hematocrit 41.2 % (36-46); Hemoglobin 13.7 g/dL (12.0-16.0); Lymphocytes Absolute Auto 2200 /uL (1100-4500); Mean Corpuscular HGB Conc 33.1 % (30-36); Mean Corpuscular Hemoglobin 27.5 PG (26-34); Mean Corpuscular Volume 83.1 fL (80-100); Platelet Count 210 X10^3/uL (150-400)
[2025-08-28 19:04] LABS: Alanine Aminotransferase 38 IU/L (<35); Albumin 4.2 g/dL (3.5-5.0); Albumin Globulin Ratio 1.4 (1.0-2.8); Alkaline Phosphatase 95 U/L (38-126); Blood Urea Nitrogen 15 mg/dL (7-17); Calcium 9.1 mg/dL (8.4-10.2); Carbon Dioxide 23 mmol/L (22-32); Chloride 108 mmol/L (98-107); Cholesterol 130 mg/dL (140-199); Estimated Glomerular Filt Rate > 60 mL/min (>60); Globulin 3.0 g/dL (1.7-4.1); Glucose 158 mg/dL (70-99); HDL Cholesterol 39 mg/dL (40-60); HEMOLYSIS 30 (0-50); Potassium 4.2 mmol/L (3.4-5.1); Sodium 141 mmol/L (137-145); Total Protein 7.2 g/dL (6.3-8.2); Triglycerides 75 mg/dL (35-150)
[2025-08-28 19:06] LABS: Hemoglobin A1C% w Est Avg Glu 10.0 % (4.0-6.0)
[2025-08-28 19:33] LABS: TSH w/ Reflex to FT4 3.36 uIU/mL (0.47-4.68)
== END ==
PROVIDERS: Family Provider Family Medicine; PCP Physician Assistant Medical; Visit Provider Physician Assistant Medical
DX: E78.2 Mixed hyperlipidemia (principal); E11.9 Type 2 diabetes mellitus without complications; G57.90 Unspecified mononeuropathy of unspecified lower limb; Z68.43 Body mass index [BMI] 50.0-59.9, adult; I10 Essential (primary) hypertension; Z87.448 Personal history of other diseases of urinary system
CPT/HCPCS: 80053; 80061; 83036; 84443; 85025